=== PATIENT | female | born 1985 | race Caucasian/White ===

== ENCOUNTER → 2019-09-08 09:50 | Outpatient (CLI) | payer BC, SELFPAY ==
[2019-09-08 12:40] LABS: Color, Urine Straw (Yellow); Glucose, Dipstick Normal (Normal); Ketone-Dipstick Negative (Negative); Leukocyte Esterase-Dipstick 500 /ul (Negative); Nitrite-Dipstick Negative (Negative); Occult Blood-Urine 10 /ul (Negative); Protein-Dipstick Negative (Negative); Urine Bilirubin Dipstick Negative (Negative); Urine Clarity Clear (Clear); Urine Urobilinogen Normal (Normal); Urine pH 6.5 (5.0 - 8.0)
== END ==
DX: N39.0 Urinary tract infection, site not specified (principal)
CPT/HCPCS: 81002; 87077; 87086; 87088; 87186

== ENCOUNTER 2022-10-04 10:19 | Emergency (ER) | payer BC, SELFPAY ==
[2022-10-04 10:20] VITALS: BP 156/95; PULSE 101; RESP 16; TEMP 36.4; O2SAT 96; BMI 43.1
[2022-10-04 10:35] VITALS: BP 150/84; PULSE 102; RESP 16; O2SAT 93
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
[2022-10-04] MEDS: Ibuprofen 600 MG Tablet PO (11:39)
[2022-10-04 11:53] VITALS: BP 137/88; PULSE 104; RESP 16; TEMP 36.7; O2SAT 95
== END 2022-10-04 12:09 | disposition home or self-care (01) ==
PROVIDERS: Emergency Provider Emergency Medicine; Visit Provider Emergency Medicine
DX: S43.52XA Sprain of left acromioclavicular joint, initial encounter (principal); V49.40XA Driver injured in collision with unspecified motor vehicles in traffic accident, initial encounter; S60.311A Abrasion of right thumb, initial encounter; Y92.410 Unspecified street and highway as the place of occurrence of the external cause
CPT/HCPCS: 73030; 99283

== ENCOUNTER → 2024-04-03 | Outpatient (CLI) | payer BC, SELFPAY ==
[2024-04-03 15:18] LABS: Color, Urine Yellow (Yellow); Glucose, Dipstick Normal (Normal); Ketone-Dipstick Negative (Negative); Leukocyte Esterase-Dipstick 500 /ul (Negative); Nitrite-Dipstick Negative (Negative); Occult Blood-Urine Negative /ul (Negative); Protein-Dipstick Negative (Negative); Urine Bilirubin Dipstick Negative (Negative); Urine Clarity Clear (Clear); Urine Urobilinogen Normal (Normal)
== END | disposition home or self-care (01) ==
DX: N31.9 Neuromuscular dysfunction of bladder, unspecified (principal); N39.0 Urinary tract infection, site not specified
CPT/HCPCS: 36415; 81002; 87077; 87086; 87088; 87186

== ENCOUNTER → 2024-12-16 | Outpatient (CLI) | payer BC, SELFPAY ==
--- OUTSIDE RECORDS SUMMARY | 2024-12-16 10:04 | XMS RPT_ITS | CCD ---
Author Organization [facility] Care Team Providers Care Courseware Developer Name Role Phone VANCE ODONNELL Attending Unavailable VANCE ODONNELL Referring Unavailable VANCE ODONNELL Primary Care Unavailable VANCE ODONNELL Attending Unavailable VANCE ODONNELL Primary Care Unavailable Allergies Allergy Classification Reported Allergen(s) Allergy Type Date of Onset Reaction(s) Facility (1 source) Amoxicillin Drug Allergy 3 [facility] Repository (1 source) Doxycycline Drug Allergy 3 [facility] Repository (1 source) Fosfomycin Drug Allergy 3 [facility] Repository (1 source) moxifloxacin Drug Allergy 3 [facility] Repository (1 source) Nitrofurantoin Drug Allergy 3 [facility] Repository Problems Problem Classification Problem Date Documented Date Episodic/Chronic Other diseases of bladder and urethra (1 source) Neuromuscular dysfunction of bladder, unspecified; Translations: [Neuromuscular dysfunction of bladder, unspecified] Onset: 05-05-2024 Chronic Urinary tract infections (1 source) Urinary tract infection, site not specified; Translations: [Urinary tract infection, site not specified] Onset: 12-13-2024 Episodic Results Test Name Value Interpretation Reference Range Facil ity Urine Cultureon 04-06-2024 [facility] Pending Citrobacter freundii Chandler Count >100,000 Klebsiella pneumoniae sp pneum Klebsiella pneumoniae sp pneum Citrobacter freundii: REACTION Cefepime Islt LAYNE <=0.12 S cefTRIAXone Islt LAYNE <=0.25 Ciprofloxacin Islt LAYNE <=0.06 S Gentamicin Islt LAYNE <=1 S levoFLOXacin Islt LAYNE <=0.12 S Meropenem Islt LAYNE <=0.25 S Nitrofurantoin Islt LAYNE <=16 S Pip+Tazo Islt LAYNE <=4 S TMP SMX Islt LAYNE <=20 S Klebsiella pneumoniae sp pneum: REACTION Ampicillin Islt LAYNE >=32 R Ampicillin+Sulbac Islt LAYNE 4 Cefepime Islt LAYNE <=0.12 S cefTRIAXone Islt LAYNE <=0.25 S Ciprofloxacin Islt LAYNE <=0.06 S B-Lactamase Extended Susc Islt NEG Gentamicin Islt LAYNE <=1 S levoFLOXacin Islt LAYNE <=0.12 S Meropenem Islt LAYNE <=0.25 S Nitrofurantoin Islt LAYNE 64 I Pip+Tazo Islt LAYNE <=4 S TMP SMX Islt LAYNE <=20 S Normal [facility] Comment on above: Performed By: #### L 400.2010, #### [facility] [address] [place], [address] Urinalysis, Routine (Dipstic k)on 04-03-2024 BILIRUBIN URINE Negative Normal Negative [facility] Comment on above: Order Comment: CLEAN CATCH Performed By: #### L 400.2010, #### [facility] [address] [place], [address] Clarity (U) Clear Normal Clear [facility] Comment on above: Order Comment: CLEAN CATCH Performed By: #### L 400.2010, #### [facility] [address] [place], [address] Color (U) Yellow Normal Yellow [facility] Comment on above: Order Comment: CLEAN CATCH Performed By: #### L 400.2010, #### [facility] [address] [place], [address] GLUCOSE, UR Normal Normal Normal [facility] Comment on above: Order Comment: CLEAN CATCH Performed By: #### L 400.2010, #### [facility] [address] [place], [address] KETONE UR Negative Normal Negative [facility] Comment on above: Order Comment: CLEAN CATCH Performed By: #### L 400.2010, #### [facility] [address] [place], [address] LEUK ESTERASE 500 /ul Abnormal Negative [facility] Comment on above: Order Comment: CLEAN CATCH Performed By: #### L 400.2010, #### [facility] [address] [place], [address] Nitrite Ql (U) Negative Normal Negative [facility] Comment on above: Order Comment: CLEAN CATCH Performed By: #### L 400.2010, #### [facility] [address] [place], [address] OCCULT BLOOD-UR Negative Normal Negative [facility] Comment on above: Order Comment: CLEAN CATCH Performed By: #### L 400.2010, #### [facility] [address] [place], [address] pH UR 7.0 Normal 5.0 - 8.0 [facility] Comment on above: Order Comment: CLEAN CATCH Performed By: #### L 400.2010, #### [facility] [address] [place], [address] PROT DIPSTX Negative Normal Negative [facility] Comment on above: Order Comment: CLEAN CATCH Performed By: #### L 400.2010, #### [facility] [address] [place], [address] SP.GR. DIPSTX 1.010 Normal 1.002-1.030 [facility] Comment on above: Order Comment: CLEAN CATCH Performed By: #### L 400.2010, #### [facility] [address] [place], [address] UROBILI Normal Normal Normal [facility] Comment on above: Order Comment: CLEAN CATCH Performed By: #### L 400.2010, M100.2200 #### [facility] [place], [address] Encounters Encounter Date Encounter Type Care Provider Facility Start: 12-13-2024 [facility] Facility:[facility] Start: 04-03-2024 End: 04-03-2024 [facility] Facility:[facility] Payers Date Payer Category Payer Self-pay 2024 Unknown [id number] Unknown [id number] Unknown [id number] Summary Purpose Family History No Family History Records Found Advance Directives No Advanced Directives Records Found Additional Source Comments INFORMATION SOURCE (unrecogn ized section and content) DATE CREATED AUTHOR 12/14/2024 [facility] FOR RECORDS PERTAINING TO PATIENTS WHO ARE OR HAVE BEEN ENROLLED IN A CHEMICAL DEPENDENCY/SUBSTANCEABUSE PROGRAM, SOME INFORMATION MAY BE OMITTED. This clinical summary was aggregated from multiple sources. Caution should be exercised in using it in the provision of clinical care. This summary normalizes information from multiple sources, and as a consequence, information in this document may materially change the coding, format and clinical context of patient data. In addition, data may be omitted in some cases. CLINICAL DECISIONS SHOULD BE BASED ON THE PRIMARY CLINICAL RECORDS. [employer] provides no warranty or guarantee of the accuracy or completeness of information in this document.
[2024-12-16 11:10] LABS: Color, Urine Yellow (Yellow); Glucose, Dipstick Normal (Normal); Ketone-Dipstick Negative (Negative); Leukocyte Esterase-Dipstick 25 /ul (Negative); Nitrite-Dipstick Negative (Negative); Occult Blood-Urine Negative /ul (Negative); Protein-Dipstick 30 mg/dl (Negative); Specific Gravity, Urine 1.010 (1.002-1.030); Urine Bilirubin Dipstick Negative (Negative)
== END | disposition home or self-care (01) ==
LOC: LAB 10:01
DX: N39.0 Urinary tract infection, site not specified (principal)
CPT/HCPCS: 81002; 87086; 87088

== ENCOUNTER → 2025-04-06 | Outpatient (CLI) | payer BC, SELFPAY ==
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
[2025-04-06 10:12] LABS: Color, Urine Yellow (Yellow); Glucose, Dipstick Normal (Normal); Hematocrit 39.8 % (37-47); Hemoglobin 13.3 g/dL (12.0-15.0); Immature Granulocytes Count 0.020 X10^3/uL (0.0-0.0); Ketone-Dipstick Negative (Negative); Leukocyte Esterase-Dipstick 25 /ul (Negative); Mean Corp Hgb Conc 33.4 g/dL (32-36); Mean Corpuscular Volume 90.9 fL (81-99); Mean Platelet Vol. 10.2 fl (6.2-12.0); NRBC Flagged by Analyzer 0 % (0-5); Nitrite-Dipstick Negative (Negative); Occult Blood-Urine Negative /ul (Negative); Platelet Count 337 K/mm3 (150-450); Protein-Dipstick Negative (Negative); RBC Distribution Width CV 12.9 % (11.6-14.6); RBC Distribution Width SD 42.5 fl (35.1-43.9); Red Blood Count 4.38 M/mm3 (4.2-5.4); Specific Gravity, Urine 1.010 (1.002-1.030); Urine Bilirubin Dipstick Negative (Negative); White Blood Count 7.6 K/mm3 (4.4-11.0)
[2025-04-06 10:29] LABS: Prothrombin Time (Protime)PT. 12.7 SECONDS (11.7-14.9)
[2025-04-06 10:30] LABS: Partial Thromboplast Time 26.7 Seconds (24.1-36.2)
[2025-04-06 10:37] LABS: AST(SGOT) 25 U/L (<=31); Alanine Aminotransfer ALT/SGPT 21 U/L (<=34); Albumin, Serum 3.7 g/dL (3.5-5.0); Alkaline Phosphatase 63 U/L (35-104); Anion Gap 10 (7-18); BUN 16 mg/dL (4-19); BUN/Creat Ratio 21.1 RATIO (10-20); Calcium,Total 9.2 mg/dL (7.6-11.0); Carbon Dioxide 23.0 mmol/L (20.0-29.0); Chloride 106 mmol/L (96-106); Globulin 3.2 g/dL (2.2-4.2); Glucose 103 mg/dL (70-99); Potassium 4.0 mmol/L (3.5-5.1)
== END | disposition home or self-care (01) ==
LOC: MTLAB 08:55
DX: Z01.818 Encounter for other preprocedural examination (principal); N31.9 Neuromuscular dysfunction of bladder, unspecified; N39.0 Urinary tract infection, site not specified
CPT/HCPCS: 36415; 80053; 81002; 85025; 85610; 85730; 87077; 87086; 87088; 87186